=== PATIENT | male | born 1995 ===

== ENCOUNTER 2019-11-19 17:47 | Emergency (ER) | payer OTHER ==
[~2019-11-19] VITALS: Ht 157.5 cm; Wt 66.0 kg
[2019-11-19] MEDS ORDERED: PERTUSS(ACELL),DIPH,TET VAC/PF 0.5 ML VIAL IM ONE (19:15)
[2019-11-19] MEDS ORDERED: IBUPROFEN 600 MG TABLET PO ONE (19:15)
[2019-11-19 20:47] VITALS: BP 113/75
== END 2019-11-19 20:30 | disposition home or self-care (01) ==
LOC: EMS 17:52 → EDSEX 17:52 → EMS 20:30
DX: S60.221A Contusion of right hand, initial encounter (principal); W22.8XXA Striking against or struck by other objects, initial encounter; Y93.89 Activity, other specified; Y92.89 Other specified places as the place of occurrence of the external cause; Y99.8 Other external cause status
CPT/HCPCS: 90715